=== PATIENT | male | born 1975 | race African-American/Black ===

== ENCOUNTER 2021-03-12 08:50 | Inpatient (IN) | payer SELFPAY ==
[~2021-03-12] VITALS: Ht 193 cm; Wt 157.0 kg
[2021-03-12 09:23] LABS: BASO # 0.1 x10^3/uL (0.0-0.2); BASO % 1 % (0-3); EOS # 0.4 x10^3/uL (0.0-0.7); EOS % 5 % (0-3); HEMATOCRIT 43.2 % (39.0-53.0); HEMOGLOBIN 14.7 g/dL (13.0-17.5); LYMPH # 1.2 x10^3/uL (1.0-4.8); LYMPH % 16 % (24-48); MEAN CORPUSCULAR HEMOGLOBIN 31 pg (25-35); MEAN CORPUSCULAR HGB CONC 34 g/dL (31-37); MEAN CORPUSCULAR VOLUME 91 fL (79-100); MONO # 1.1 x10^3/uL (0.0-1.1); MONO % 15 % (0-9); NEUT # 4.6 x10^3/uL (1.8-7.7); NEUT % 62 % (31-73); PLATELET COUNT 283 x10^3/uL (140-400); RED BLOOD COUNT 4.74 x10^6/uL (4.30-5.70); RED CELL DISTRIBUTION WIDTH 13.9 % (11.5-14.5); WHITE BLOOD COUNT 7.4 x10^3/uL (4.0-11.0)
[2021-03-12] MEDS ORDERED: IV NORMAL SALINE 1000ML BAG 1,000 ML IV ONE (09:30)
[2021-03-12 09:31] LABS: CREATININE 1.1 mg/dL (0.7-1.3); POTASSIUM 4.3 mmol/L (3.5-5.1)
[2021-03-12 09:37] LABS: ALBUMIN 3.8 g/dL (3.4-5.0); ALBUMIN/GLOBULIN RATIO 0.9 (1.0-1.7); TOTAL BILIRUBIN 0.7 mg/dL (0.2-1.0)
[2021-03-12] MEDS ORDERED: IV NORMAL SALINE 500ML BAG 500 ML IV ONE (09:45)
[2021-03-12] MEDS ORDERED: IOHEXOL 350 MG/ML 100 ML VIAL. IV ONE (09:45)
[2021-03-12] MEDS ORDERED: DEXAMETHASONE SOD PHOS 20 MG/5 ML VIAL. IV ONE (09:45)
[2021-03-12] MEDS ORDERED: IPRATRPIUM/ALBUTEROL 0.5/2.5MG 3 ML NEBU. NEB ONE ×3 (09:45→12:00)
--- NOTE | 2021-03-12 09:46 | PHYS DOC ---
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 Is taking norvasc, atorvastatin and albuterol-no relief with a breathing treatment prior to arrival. States his lower extremity swelling has worsened with Norvasc. Also reports he takes Lasix but is uncertain the dosage. Review of Systems: Review of Systems: Constitutional: Denies fever or chills. [] Eyes: Denies change in visual acuity. [] HENT: Denies nasal congestion or sore throat. [] Respiratory: Denies cough or hemoptysis Cardiovascular: Denies syncope or edema. [] GI: Denies abdominal pain, nausea, vomiting, bloody stools or diarrhea. [] : Denies dysuria or hematuria Musculoskeletal: Denies back pain or joint pain. [] Integument: Denies rash or diaphoresis Neurologic: Denies focal weakness or sensory changes. [] Endocrine: Denies polyuria or polydipsia. [] Lymphatic: Denies swollen glands. [] Psychiatric: Denies depression or anxiety. [] Heart Score: C/O Chest Pain: Yes HEART Score for Chest Pain: HEART Score for Chest Pain Response (Comments) Value History Slighlty/Non-Suspicious 0 ECG Normal 0 Age < 45 0 Risk Factors >3 Risk Factors or Hx CAD 2 Troponin < Normal Limit 0 Total 2 Risk Factors: Risk Factors: DM, Current or recent (<one month) smoker, HTN, HLP, family history of CAD, obesity. Risk Scores: Score 0 - 3: 2.5% MACE over next 6 weeks - Discharge Home Score 4 - 6: 20.3% MACE over next 6 weeks - Admit for Clinical Observation Score 7 - 10: 72.7% MACE over next 6 weeks - Early Invasive Strategies Current Medications: Current Medications Medications (Trade) Dose Ordered Sig/Airam Start Time Stop Time Status Last Admin Dose Admin Albuterol/ Ipratropium (Duoneb) 3 ml 1X ONCE 03/12/21 09:45 03/12/21 09:46 UNV Dexamethasone Sodium Phosphate (Decadron) 10 mg 1X ONCE 03/12/21 09:45 03/12/21 09:46 UNV Sodium Chloride 500 ml @ 500 mls/hr 1X ONCE 03/12/21 09:45 03/12/21 10:44 UNV 03/12/21 09:42 500 MLS/HR Allergies: Allergies: Allergies Coded Allergies Type Severity Reaction Last Updated Verified No Known Drug Allergies 03/12/21 No Physical Exam: PE: Constitutional: Well developed, well nourished, no acute distress, non-toxic appearance very large, physically active 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 Neck: Normal range of motion, supple, no JVD Cardiovascular: S1/2 present, regular rhythm Lungs & Thorax: Speaking in full sentences, bilateral equal chest rise, no tachypnea or increased work of breathing, audible wheezing, maintains saturation above 90% Abdomen: soft, no tenderness, Skin: Warm, dry, no erythema, no rash. [] Back: No tenderness, no CVA tenderness. [] Extremities: No tenderness, no cyanosis, bilateral lower extremity edema-right leg appears slightly worse than left Neurologic: Alert and oriented X 3, normal motor function, normal sensory function, no focal deficits noted. [] Psychologic: Affect normal, judgement normal, mood normal. [] Current Patient Data: Labs: Laboratory Tests Test 03/12/21 09:05 White Blood Count 7.4 x10^3/uL (4.0-11.0) Red Blood Count 4.74 x10^6/uL (4.30-5.70) Hemoglobin 14.7 g/dL (13.0-17.5) Hematocrit 43.2 % (39.0-53.0) Mean Corpuscular Volume 91 fL (79-100) Mean Corpuscular Hemoglobin 31 pg (25-35) Mean Corpuscular Hemoglobin Concent 34 g/dL (31-37) Red Cell Distribution Width 13.9 % (11.5-14.5) Platelet Count 283 x10^3/uL (140-400) Neutrophils (%) (Auto) 62 % (31-73) Lymphocytes (%) (Auto) 16 % (24-48) L Monocytes (%) (Auto) 15 % (0-9) H Eosinophils (%) (Auto) 5 % (0-3) H Basophils (%) (Auto) 1 % (0-3) Neutrophils # (Auto) 4.6 x10^3/uL (1.8-7.7) Lymphocytes # (Auto) 1.2 x10^3/uL (1.0-4.8) Monocytes # (Auto) 1.1 x10^3/uL (0.0-1.1) Eosinophils # (Auto) 0.4 x10^3/uL (0.0-0.7) Basophils # (Auto) 0.1 x10^3/uL (0.0-0.2) Sodium Level 138 mmol/L (136-145) Potassium Level 4.3 mmol/L (3.5-5.1) Chloride Level 104 mmol/L (98-107) Carbon Dioxide Level 27 mmol/L (21-32) Anion Gap 7 (6-14) Blood Urea Nitrogen 23 mg/dL (8-26) Creatinine 1.1 mg/dL (0.7-1.3) Estimated GFR (Cockcroft-Gault) 88.0 BUN/Creatinine Ratio 21 (6-20) H Glucose Level 113 mg/dL (70-99) H Calcium Level 9.0 mg/dL (8.5-10.1) Total Bilirubin 0.7 mg/dL (0.2-1.0) Aspartate Amino Transferase (AST) 48 U/L (15-37) H Alanine Aminotransferase (ALT) 51 U/L (16-63) Alkaline Phosphatase 87 U/L (46-116) Troponin I Quantitative < 0.017 ng/mL (0.000-0.055) AY-Gjr-D-Type Natriuretic Peptide 123 pg/mL (0-124) Total Protein 8.0 g/dL (6.4-8.2) Albumin 3.8 g/dL (3.4-5.0) Albumin/Globulin Ratio 0.9 (1.0-1.7) L Laboratory Tests 03/12/21 09:05 Laboratory Tests 03/12/21 09:05 Vital Signs: Vital Signs Date Time Temp Pulse Resp B/P (MAP) Pulse Ox O2 Delivery O2 Flow Rate FiO2 03/12/21 09:03 97.8 100 26 159/96 (117) 94 Room Air 97.8 EKG: EKG: Sinus tachycardia 100 bpm, no axis deviation, QTC 476, no T wave inversion, no ST elevation or ST depression Radiology/Procedures: Radiology/Procedures: IMAGING REPORT Signed PATIENT: DANN CHRIS ACCOUNT: [id number] : 1975 LOCATION: ER AGE: 45 SEX: M EXAM STATUS: REG ER ORD. PHYSICIAN: WALESKA CARRASCO DO REASON: soa PROCEDURE: PORTABLE CHEST 1V Exam Date: 03/12/2021 9:12 AM XR CHEST 1V Indication: Reason: soa / Spl. Instructions: / History: . FINDINGS/ IMPRESSION: The cardiac silhouette and pulmonary vasculature are within normal limits. There is no focal consolidation, pleural effusion or pneumothorax. The visualized osseous structures are intact. Electronically signed by: Gentry Rangel MD (03/12/2021 9:42 AM) [facility] DICTATED and SIGNED BY: GENTRY ARNGEL MD DATE: 03/12/21 [id number] IMAGING REPORT Signed PATIENT: DANN CHRIS ACCOUNT: [id number] : 1975 LOCATION: ER AGE: 45 SEX: M EXAM STATUS: REG ER ORD. PHYSICIAN: WALESKA CARRACSO DO REASON: soa PROCEDURE: CT ANGIOGRAPHY CHEST CTA CHEST INDICATION: soa Comparison: Chest radiograph 03/12/2021. CTA 11/02/2020 TECHNIQUE: Following the uneventful administration of intravenous contrast, 100 cc Omnipaque 350, axial CT sections were obtained through the lungs and upper abdomen. Multiplanar reconstructions and MIP images were obtained. PQRS compliance statement: One or more of the following individualized dose reduction techniques were utilized for this examination: 1. Automated exposure control 2. Adjustment of the mA and/or kV according to patient size 3. Use of iterative reconstruction technique FINDINGS: Pulmonary arteries: No evidence of pulmonary thromboembolic disease. Lungs and Airways: No pulmonary mass or consolidation. Calcified pulmonary granulomas. No abnormality of the central airways. Pleura: The pleural spaces are normal. Heart and Mediastinum: The visualized thyroid is normal in size and attenuation. No axillary or supraclavicular lymphadenopathy. No mediastinal, hilar or retrocrural lymphadenopathy. Calcified left hilar lymph nodes consistent with remote granulomatous disease. The heart and pericardium are within normal limits. The great vessels of the thorax are normal. Residual thymic tissue. Abdomen: Limited images through the upper abdomen show no abnormality of the visualized organs. Bones and Soft Tissues: The visualized bones and chest wall soft tissues are within normal limits. IMPRESSION: 1. No evidence of pulmonary thromboembolic disease. 2. No pulmonary mass or consolidation. Electronically signed by: Sumeet Conway MD (03/12/2021 10:15 AM) [id number] DICTATED and SIGNED BY: SUMEET CONWAY MD DATE: 03/12/21 [id number] 0 Course & Med Decision Making: Course & Med Decision Making Pertinent Labs and Imaging studies reviewed. (See chart for details) Concern for Covid long-haul low versus asthma exacerbation, CT of the chest negative for PE or consolidation. Troponin negative with unremarkable EKG. Will admit for steroids and breathing treatments and further medical management. Patient stable time of admission agrees with this plan. I have spoken with the patient and/or caregivers. I have explained the patient's condition, diagnosis and treatment plan based on the information available to me at this time. I have answered the patient's and/or caregivers questions and answered any concerns. The patient and/or caregivers have as good an understanding of the patient's diagnosis, condition and treatment plan as can be expected at this point. The patient has been stabilized within the capability of the emergency department. The patient will be transported for further care and management or will be moved to an observation or inpatient service. I have communicated with the staff or medical practitioner taking over this patient's care. Robbie Disclaimer: Robbie Disclaimer: This electronic medical record was generated, in whole or in part, using a voice recognition dictation system. Departure Departure Impression: Primary Impression: Asthma exacerbation Disposition: ADMITTED INPATIENT Admitting Physician: MARY (Dr. Hardin) Condition: STABLE Referrals: UNKNOWN PCP NAME (PCP) WALESKA CARRASCO DO Mar 12, 2021 09:45
[2021-03-12] MEDS ORDERED: CONTRAST GIVEN. MC PRN (10:00)
--- NOTE | 2021-03-12 10:17 | RAD ---
CTA CHEST INDICATION: soa Comparison: Chest radiograph 03/12/2021. CTA 11/02/2020 TECHNIQUE: Following the uneventful administration of intravenous contrast, 100 cc Omnipaque 350, axi al CT sections were obtained through the lungs and upper abdomen. Multiplanar reconstructions and MIP images were obtained. PQRS compliance statement: One or more of the following individualized dose reduction techniques were utilized for this examinat ion: 1. Automated exposure control 2. Adjustment of the mA and/or kV according to patient size 3. Use of iterative reconstruction technique FINDINGS: Pulmonary arteries: No evidence of pulmonary thromboembolic disease. Lungs and Airways: No pulmonary mass or consolidation. Calcified pulmonary granulomas. No abnormality of the central airways. Pleura: The pleural spaces are normal. Heart and Mediastinum: The visualized thyroid is normal in size and attenuation. No axillary or supra clavicular lymphadenopathy. No mediastinal, hilar or retrocrural lymphadenopathy. Calcified left latha r lymph nodes consistent with remote granulomatous disease. The heart and pericardium are within norm al limits. The great vessels of the thorax are normal. Residual thymic tissue. Abdomen: Limited images through the upper abdomen show no abnormality of the visualized organs. Bones and Soft Tissues: The visualized bones and chest wall soft tissues are within normal limits. IMPRESSION: 1. No evidence of pulmonary thromboembolic disease. 2. No pulmonary mass or consolidation. Electronically signed by: Alex Conway MD (03/12/2021 10:15 AM) [id number]
--- NOTE | 2021-03-12 11:37 | RAD ---
Site ID: [id number] EXAMINATION: Bilateral lower extremity duplex venous ultrasound. TECHNIQUE: DVT protocol. Multiple sonographic images with color Doppler and waveform interrogation we re performed of the lower extremity veins, bilaterally, with compression and augmentation maneuvers. INDICATION: 45 years Male Bilateral leg swelling. . . FINDINGS: The lower extremity veins from the common femoral veins to below the knee veins were examin ed with normal color-flow, compressibility and normal waveform demonstrated. The great saphenous vein s visualized portion proximally are patent. IMPRESSION: No evidence of DVT in either lower extremity. Electronically signed by: Andrew Hogue MD (03/12/2021 11:35 AM) [id number]
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
[2021-03-12] MEDS ORDERED: ALBUTEROL SULFATE 2.5 MG/3 ML NEBU. NEB PRN (13:00)
[2021-03-12] MEDS ORDERED: KETOROLAC 15 MG/ML VIAL. IVP ONE (13:00)
[2021-03-12] MEDS: BUDESONIDE 0.5 MG/2 ML NEBU. NEB SCH (13:00)
[2021-03-12] MEDS: IPRATRPIUM/ALBUTEROL 0.5/2.5MG 3 ML NEBU. NEB SCH ×2 (13:20→16:00)
[2021-03-12] MEDS ORDERED: DOXYCYCLINE HYCLATE 100 MG in IV DEXTROSE 5% 100ML 100 ML IV ONE (15:00)
[2021-03-12] MEDS: CETIRIZINE HCL 10 MG TABLET. PO SCH (15:58)
[2021-03-12] MEDS: MONTELUKAST SODIUM 10 MG TABLET. PO SCH ×2 (15:58→21:21)
[2021-03-12] MEDS ORDERED: CETI10TA74 PO (16:31)
[2021-03-12] MEDS ORDERED: ASPI-886 PO (16:31)
[2021-03-12] MEDS ORDERED: MONT10TA49 PO (16:31)
[2021-03-12] MEDS ORDERED: FURO-68 PO (16:31)
[2021-03-12] MEDS ORDERED: PROP10TA PO (16:31)
[2021-03-12 16:57] VITALS: BP 164/98
[2021-03-12] MEDS ORDERED: FLU VACC QUAD 21-22 (6MOS+) PF 0.5 ML SYRINGE. VAX IM ONE (17:00)
[2021-03-12] MEDS: fentaNYL PF VIAL 100 MCG/2 ML VIAL IVP PRN ×2 (17:15→21:22)
[2021-03-12] MEDS: guaiFENesin DM 200MG/20MG 10 ML SYRUP PO PRN ×2 (17:15→21:21)
[2021-03-12 19:00] VITALS: BP 123/58
[2021-03-12] MEDS: ASPIRIN ENTERIC COATED 81 MG TABLET.DR. PO SCH (21:21)
[2021-03-12] MEDS: BENZONATATE 100 MG CAPSULE. PO SCH (21:21)
[2021-03-12 22:54] VITALS: BP 133/62
[2021-03-13 03:01] VITALS: BP 148/69
[2021-03-13] MEDS: BUDESONIDE 0.5 MG/2 ML NEBU. NEB SCH ×2 (06:15→20:35)
[2021-03-13] MEDS: IPRATRPIUM/ALBUTEROL 0.5/2.5MG 3 ML NEBU. NEB SCH ×4 (06:15→20:35)
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
[2021-03-13 07:00] VITALS: BP 169/95
[2021-03-13 09:02] LABS: ALBUMIN 3.7 g/dL (3.4-5.0); ALBUMIN/GLOBULIN RATIO 0.8 (1.0-1.7); CREATININE 0.8 mg/dL (0.7-1.3); GFR 127.1; POTASSIUM 4.1 mmol/L (3.5-5.1); TOTAL BILIRUBIN 0.7 mg/dL (0.2-1.0); TOTAL PROTEIN 8.1 g/dL (6.4-8.2)
[2021-03-13] MEDS: DOXYCYCLINE HYCLATE 100 MG TABLET PO SCH ×2 (10:15→23:00)
[2021-03-13] MEDS: CETIRIZINE HCL 10 MG TABLET. PO SCH (10:16)
[2021-03-13] MEDS: predniSONE 20 MG TABLET PO SCH (10:16)
[2021-03-13] MEDS: ASPIRIN ENTERIC COATED 81 MG TABLET.DR. PO SCH (10:16)
[2021-03-13] MEDS: METOPROLOL SUCC 24HR ER 25 MG TAB.ER.24H. PO SCH (10:16)
[2021-03-13] MEDS: BENZONATATE 100 MG CAPSULE. PO SCH ×3 (10:16→23:00)
[2021-03-13 11:00] VITALS: BP 162/91
--- NOTE | 2021-03-13 11:12 | NUR ---
SW following. Discussed with RN, pt from home, room air, regular diet, ad kieran, COVID-19 negative. Pt had COVID about 2 months ago. Med Assist following for self pay status. SW will continue to follow.
[2021-03-13] MEDS: FUROSEMIDE 40 MG TABLET. PO SCH (11:30)
[2021-03-13] MEDS: FLUTICASONE 50MCG/NASAL SPRAY 16GM BOTTLE. NS SCH (11:31)
[2021-03-13] MEDS: LOSARTAN POTASSIUM 50 MG TABLET. PO SCH (11:31)
[2021-03-13] MEDS: ACETAMINOPHEN 325 MG TABLET. PO PRN ×2 (12:29→23:02)
[2021-03-13 15:00] VITALS: BP 154/91
[2021-03-13 19:00] VITALS: BP 162/78
[2021-03-13] MEDS ORDERED: guaiFENesin DM 600/30MG 1 TAB TAB.ER.12H PO SCH (21:00)
[2021-03-13 23:00] VITALS: BP 146/82
[2021-03-13] MEDS: LACTOBACILLUS RHAMNOSUS GG 1 CAPSULE. PO SCH (23:00)
[2021-03-13] MEDS: MONTELUKAST SODIUM 10 MG TABLET. PO SCH (23:00)
[2021-03-14] MEDS ORDERED: HYDROcodone/APAP 5/325MG 1 TAB TABLET PO PRN (02:15)
[2021-03-14 03:00] VITALS: BP 178/96
[2021-03-14 07:00] VITALS: BP 135/78
[2021-03-14] MEDS: IPRATRPIUM/ALBUTEROL 0.5/2.5MG 3 ML NEBU. NEB SCH ×2 (07:15→11:12)
[2021-03-14] MEDS: BUDESONIDE 0.5 MG/2 ML NEBU. NEB SCH (07:16)
[2021-03-14] MEDS ORDERED: guaiFENesin DM 200MG/20MG 10 ML SYRUP PO PRN (07:30)
[2021-03-14] MEDS ORDERED: tiZANidine 4 MG TABLET. PO PRN (07:30)
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
[2021-03-14] MEDS ORDERED: PRED20TA PO (10:13)
[2021-03-14] MEDS ORDERED: LOSA-73 PO (10:13)
[2021-03-14] MEDS ORDERED: METO-239 PO (10:13)
[2021-03-14] MEDS ORDERED: AZIT500T4 PO (10:13)
[2021-03-14] MEDS ORDERED: ALBU2.5V8 NEB (10:13)
[2021-03-14] MEDS ORDERED: FLUT16SP NS (10:13)
[2021-03-14] MEDS: FLUTICASONE 50MCG/NASAL SPRAY 16GM BOTTLE. NS SCH (10:22)
[2021-03-14] MEDS: BENZONATATE 100 MG CAPSULE. PO SCH (10:22)
[2021-03-14] MEDS: CETIRIZINE HCL 10 MG TABLET. PO SCH (10:23)
[2021-03-14] MEDS: FUROSEMIDE 40 MG TABLET. PO SCH (10:23)
[2021-03-14] MEDS: LACTOBACILLUS RHAMNOSUS GG 1 CAPSULE. PO SCH (10:23)
[2021-03-14] MEDS: DOXYCYCLINE HYCLATE 100 MG TABLET PO SCH (10:23)
[2021-03-14] MEDS: METOPROLOL SUCC 24HR ER 25 MG TAB.ER.24H. PO SCH (10:23)
[2021-03-14] MEDS: predniSONE 20 MG TABLET PO SCH (10:23)
[2021-03-14] MEDS: ASPIRIN ENTERIC COATED 81 MG TABLET.DR. PO SCH (10:23)
[2021-03-14] MEDS: LOSARTAN POTASSIUM 50 MG TABLET. PO SCH (10:24)
[2021-03-14 11:00] VITALS: BP 143/83
--- NOTE | 2021-03-14 12:35 | NUR ---
SW following. Discussed with RN, pt from home, room air, regular diet, COVID-19 negative. Discharge order for home with self care. Med Assist following for self pay status.
--- NOTE | 2021-03-14 14:11 | NUR ---
Pt left unit at 1345 by ambulation via private vehicle. Pt's IV removed without complication, VSS. Discharge paperwork discussed and sent with pt at time of discharge.
== END 2021-03-14 13:45 | disposition home or self-care (01) | DRG 202 ==
LOC: ER 08:50 → ED HOLD 12:26 → 5 NORTH 15:50
PROVIDERS: ADMIT Internal Medicine; ATTEND Internal Medicine
DX: J45.901 Unspecified asthma with (acute) exacerbation (principal); I50.32 Chronic diastolic (congestive) heart failure; L02.31 Cutaneous abscess of buttock; E78.5 Hyperlipidemia, unspecified; I11.0 Hypertensive heart disease with heart failure; I69.334 Monoplegia of upper limb following cerebral infarction affecting left non-dominant side; J44.9 Chronic obstructive pulmonary disease, unspecified; Z20.822 Contact with and (suspected) exposure to COVID-19; Z79.899 Other long term (current) drug therapy; Z82.49 Family history of ischemic heart disease and other diseases of the circulatory system; Z86.16 Personal history of COVID-19
CPT/HCPCS: 36415; 71045; 71275; 80053; 83880; 84484; 85025; 87426; 90471; 90686; 93970; 94640; 94760; J1100; J1885; J3010; J3490; J7030; J7040; J7060; J7512; Q9967; U0003; U0005; 99285-25; G0378; J7626

== ENCOUNTER 2021-04-07 11:05 | Emergency (ER) | payer SELFPAY ==
[~2021-04-07] VITALS: Ht 188 cm; Wt 125.0 kg
[~2021-04-07 11:05] MED LIST: ALBU2.5V8 NEB; ASPI-886 PO; AZIT500T4 PO; CETI10TA74 PO; FLUT16SP NS; FURO-68 PO; LOSA-73 PO; METO-239 PO; MONT10TA49 PO; PRED20TA PO; PROP10TA PO
--- NOTE | 2021-04-07 15:59 | PHYS DOC ---
Past Medical History Past Surgical History: Other Smoking Status: Former Smoker Alcohol Use: None General Adult EDM: Chief Complaint: FOOT INJURY PAIN HPI: HPI: Patient is a 45-year-old male who presents to the emergency department chief complaint of bilateral foot pain for the past 4 weeks. Patient denies injury to his feet, reports he may have gout although denies history of gout problems. Patient also reports being in close contact with someone who was COVID-19 +, 2 weeks ago and has been experiencing generalized body aches for the past 2 weeks. Patient denies chest pain or shortness of breath, denies cough, chest congestion or nasal congestion. Patient denies nausea, vomiting, or diarrhea. Patient denies abdominal pains. Patient denies increased thirst or increased urination. Patient is asking for a work excuse. Patient is requesting a cab pa ss to [facility]. Patient denies other physical complaints or physical concerns. Review of Systems: Review of Systems: 14 body systems of review of systems have been reviewed. See HPI for pertinent positives and negative responses, otherwise all other systems are negative, nonpertinent or noncontributory. Constitutional: Negative except as outlined in HPI above. Skin: Negative except as outlined in HPI above. Eyes: Negative except as outlined in HPI above. HENT: Negative except as outlined in HPI above. Respiratory: Negative except as outlined in HPI above. Cardiovascular: Negative except as outlined in HPI above. GI: Negative except as outlined in HPI above. : Negative except as outlined in HPI above. Musculoskeletal: Negative except as outlined in HPI above. Integument: Negative except as outlined in HPI above. Neurologic: Negative except as outlined in HPI above. Endocrine: Negative except as outlined in HPI above. Lymphatic: Negative except as outlined in HPI above. Psychiatric: Negative except as outlined in HPI above. Heart Score: C/O Chest Pain: No Risk Factors: Risk Factors: DM, Current or recent (<one month) smoker, HTN, HLP, family history of CAD, obesity. Risk Scores: Score 0 - 3: 2.5% MACE over next 6 weeks - Discharge Home Score 4 - 6: 20.3% MACE over next 6 weeks - Admit for Clinical Observation Score 7 - 10: 72.7% MACE over next 6 weeks - Early Invasive Strategies Allergies: Allergies: Allergies Coded Allergies Type Severity Reaction Last Updated Verified No Known Drug Allergies 04/07/21 No Physical Exam: PE: Constitutional: Well developed, well nourished, no acute distress, non-toxic appearance. 45-year-old male in no apparent distress. HENT: Normocephalic, atraumatic. No deep tissue infectious of the oropharynx process appreciated, no lymphadenopathy of the head or neck appreciated. Patient speaking in normal voice tones, no drooling, no trismus. Bilateral TMs intact within normal limits. Eyes: Conjunctiva normal, no discharge. Neck: Normal range of motion, no stridor. Cardiovascular: No cyanosis appreciated, distal cap refill less than 2 seconds. Heart sounds S1-S2. Lungs & Thorax: Patient is in no respiratory distress, no audible adventitious lung sounds appreciated. No adventitious lung sounds appreciated per auscultation, clear lung sounds all lung johnson. Abdomen: Nontender, no abnormalities noted. Skin: Warm, dry, no erythema, no rash. Back: No tenderness, no deformities. Extremities: No tenderness, no cyanosis, no clubbing, ROM intact, no edema. 2+ dorsalis pedis/posterior tibial pulses, pain to palpation along dorsal aspect of bilateral feet. Distal cap refill is less than 2 seconds, no abnormalities appreciated of bilateral feet. Patient's complaints of pain of his feet exceeds patient's physical presentation and examination. Neurologic: Alert and oriented X 3, normal motor function, normal sensory function, no focal deficits noted. Psychologic: Affect normal, judgement normal, mood normal. Current Patient Data: Labs: Laboratory Tests Test 04/07/21 16:36 04/07/21 16:38 White Blood Count 6.7 x10^3/uL Red Blood Count 4.78 x10^6/uL Hemoglobin 14.8 g/dL Hematocrit 43.9 % Mean Corpuscular Volume 92 fL Mean Corpuscular Hemoglobin 31 pg Mean Corpuscular Hemoglobin Concent 34 g/dL Red Cell Distribution Width 14.0 % Platelet Count 232 x10^3/uL Neutrophils (%) (Auto) 58 % Lymphocytes (%) (Auto) 21 % Monocytes (%) (Auto) 13 % Eosinophils (%) (Auto) 8 % Basophils (%) (Auto) 1 % Neutrophils # (Auto) 3.9 x10^3/uL Lymphocytes # (Auto) 1.4 x10^3/uL Monocytes # (Auto) 0.9 x10^3/uL Eosinophils # (Auto) 0.5 x10^3/uL Basophils # (Auto) 0.1 x10^3/uL Sodium Level 139 mmol/L Potassium Level 3.9 mmol/L Chloride Level 103 mmol/L Carbon Dioxide Level 29 mmol/L Anion Gap 7 Blood Urea Nitrogen 24 mg/dL Creatinine 1.1 mg/dL Estimated GFR (Cockcroft-Gault) 88.0 Glucose Level 105 mg/dL Uric Acid 6.1 mg/dL Calcium Level 8.3 mg/dL SARS-CoV-2 Antigen (Rapid) Negative Current Medications Medications (Trade) Dose Ordered Sig/Airam Route PRN Reason Start Time Stop Time Status Last Admin Dose Admin Ketorolac Tromethamine (Toradol Im) 60 mg 1X ONCE IM 04/07/21 16:00 04/07/21 16:06 DC 04/07/21 16:00 Vital Signs: Vital Signs Date Time Temp Pulse Resp B/P (MAP) Pulse Ox O2 Delivery O2 Flow Rate FiO2 04/07/21 13:22 98.4 95 15 166/106 (126) 98 Room Air 98.4 EKG: EKG: [] Radiology/Procedures: Radiology/Procedures: PATIENT: DANN VALENTIN ACCOUNT: [id number] : 1975 LOCATION: ER AGE: 45 SEX: M EXAM STATUS: REG ER ORD. PHYSICIAN: ALEXIS PEDRAZA APRN REASON: Acute pain PROCEDURE: FOOT BILAT 3V EXAM: Bilateral feet, 3 views. HISTORY: Acute pain. COMPARISON: None. FINDINGS: 3 views of both feet are obtained. There is no acute fracture, dislocation or subluxation. There is minimal enthesopathy at the Achilles tendon insertions. There is a small corticated ossicle along the anterior right talus, possibly due to a chronic nonunited avulsion fracture fragment. IMPRESSION: No acute osseous finding. Electronically signed by: Orquidea Avery MD (04/07/2021 4:17 PM) [id number] Course & Med Decision Making: Course & Med Decision Making Pertinent Labs and Imaging studies reviewed. (See chart for details) 45-year-old male, vital signs reviewed, presents emergency department concerning bilateral foot pain for 4 weeks, generalized body aches for the past 2 weeks. Physical examination is unremarkable, with patient's reported exposure to COVID- 19 virus patient will order COVID-19 testing, CBC, BMP, will order uric acid level with patient's concerns of gout flareup of bilateral feet. Patient's labs unremarkable, patient is rapid Covid test is negative, uric acid level within normal limits, x-ray of bilateral feet nonconcerning for arthritis, osteoarthritis, or other acute process. Discussed findings with patient, will diagnosed with viral syndrome, bilateral foot pain, patient was given IM Toradol for pain, patient reports mild relief of pain of his feet. Patient is asking for a cab pass to [facility]. Patient is also asking for work excuse, provide work excuse. Patient is nontoxic in appearance, in no respiratory distress, is not hypoxic. Discussed with the patient all findings and diagnostic testing as well as the need to follow-up with their primary care provider for further evaluation and treatment or return to the ED if any new or worsening symptoms. Strict return precautions were also discussed at length, the patient voiced understanding and agreement with the discharge planning. The patient was nontoxic in appearance, in no apparent distress, and hemodynamically stable at the time of disposition. Dragon Disclaimer: [employer] Disclaimer: This electronic medical record was generated, in whole or in part, using a voice recognition dictation system. Departure Departure Impression: Primary Impression: Viral syndrome Additional Impression: Bilateral foot pain Disposition: HOME / SELF CARE / HOMELESS Condition: GOOD Referrals: NO PCP (PCP) Patient Instructions: Viral Syndrome Additional Instructions: You were seen today in the emergency department for body aches and pains with bilateral foot pain. X-rays of your feet did not show any abnormalities, a Covid test was done today in the emergency department, you do not have the Covid virus. You were checked for gout, you do not have any signs for gout. I am writing you a work excuse as you requested for the next 2 days. Please continue to take [id number] ibuprofen and/or Tylenol for aches and pains. Follow- up with your primary care physician this week for ongoing symptoms. Return to the emergency department for worsening symptoms or other concerns. Thank you for visiting our Emergency Department. It was a pleasure taking care of you today in the emergency department and we appreciate you trusting us with your care. If any additional problems come up don't hesitate to return to visit us. Please follow up with your primary care provider so they can plan additional care if needed and know about the problem that you had. If symptoms worsen come back to the Emergency Department. Any concerning symptoms that start such as chest pain, shortness of air, weakness or numbness on one side of the body, running high fevers or any other concerning symptoms return to the ER. EMERGENCY DEPARTMENT GENERAL DISCHARGE INSTRUCTIONS Thank you for coming to [facility] Emergency Department (ED) today and trusting us with you care. We trust that you had a positive experience in our Emergency Department. If you wish to speak to the department management, you may call the Director at [phone]. YOUR FOLLOW UP INSTRUCTIONS ARE FOLLOWS: 1. Do you have a private Doctor? If you do not have a private doctor, please ask for a resource list of physicians or clinics that may be able to assist you with follow up care. 2. The Emergency Physicain has interpreted your x-rays. The X-Ray specialist will also review them. If there is a change in the findings, you will be notified in 48 hours when at all possible. 3. A lab test or culture has been done, your results will be reviewed and you will be notified if you need a change in treatment. ADDITIONAL INSTRUCTIONS AND INFORMATION: 1. Your care today has been supervised by a physician who is specially trained in emergency care. Many problems require more than one evaluation for a complete diagnosis and treatment. We recommend that you schedule your follow up appointment as recommended to ensure complete treatment of you illness or injury. If you are unable to obtain follow up care and continue to have a problem, or if your condition worsens, we recommend that you return to the ED. 2. We are not able to safely determine your condition over the phone nor are we able to give sound medical advice over the phone. For these safety reasons, if you call for medical advice we will ask you to come to the ED for further evaluation. 3. If you have any questions regarding these discharge instructions please call the ED at [phone]. SAFETY INFORMATION: In the interest of safety, wellness, and injury prevention; we encourage you to wear your sealbelt, if you smoke; quite smoking, and we encourage family to use a protective helmet for bicycling and other sporting events that present an increased risk for head injury. IF YOUR SYMPTOMS WORSEN OR NEW SYMPTOMS DEVELOP, OR YOU HAVE CONCERNS ABOUT YOUR CONDITION; OR IF YOUR CONDITION WORSENS WHILE YOU ARE WAITING FOR YOUR FOLLOW UP APPOINTMENT; EITHER CONTACT YOUR PRIMARY CARE DOCTOR, THE PHYSICIAN WHOSE NAME AND NUMBER YOU WERE GIVEN, OR RETURN TO THE ED IMMEDIATELY. ALEXIS PEDRAZA APRN Apr 07, 2021 15:59
[2021-04-07] MEDS ORDERED: KETOROLAC 60 MG/2 ML VIAL. IM ONE (16:00)
--- NOTE | 2021-04-07 16:19 | RAD ---
EXAM: Bilateral feet, 3 views. HISTORY: Acute pain. COMPARISON: None. FINDINGS: 3 views of both feet are obtained. There is no acute fracture, dislocation or subluxation. There is minimal enthesopathy at the Achilles tendon insertions. There is a small corticated ossicle along the anterior right talus, possibly due to a chronic nonunited avulsion fracture fragment. IMPRESSION: No acute osseous finding. Electronically signed by: Orquidea Avery MD (04/07/2021 4:17 PM) [id number]
[2021-04-07 16:53] LABS: BASO # 0.1 x10^3/uL (0.0-0.2); BASO % 1 % (0-3); CALCIUM 8.3 mg/dL (8.5-10.1); CREATININE 1.1 mg/dL (0.7-1.3); EOS # 0.5 x10^3/uL (0.0-0.7); EOS % 8 % (0-3); HEMATOCRIT 43.9 % (39.0-53.0); HEMOGLOBIN 14.8 g/dL (13.0-17.5); LYMPH # 1.4 x10^3/uL (1.0-4.8); LYMPH % 21 % (24-48); MEAN CORPUSCULAR HEMOGLOBIN 31 pg (25-35); MEAN CORPUSCULAR HGB CONC 34 g/dL (31-37); MEAN CORPUSCULAR VOLUME 92 fL (79-100); MONO # 0.9 x10^3/uL (0.0-1.1); MONO % 13 % (0-9); NEUT # 3.9 x10^3/uL (1.8-7.7); NEUT % 58 % (31-73); PLATELET COUNT 232 x10^3/uL (140-400); POTASSIUM 3.9 mmol/L (3.5-5.1); RED BLOOD COUNT 4.78 x10^6/uL (4.30-5.70); WHITE BLOOD COUNT 6.7 x10^3/uL (4.0-11.0)
[2021-04-07 16:56] LABS: URIC ACID 6.1 mg/dL (3.5-7.2)
[2021-04-07 17:07] VITALS: BP 169/87
== END 2021-04-07 18:43 | disposition home or self-care (01) ==
LOC: ER 11:05
DX: B34.9 Viral infection, unspecified (principal); Z20.822 Contact with and (suspected) exposure to COVID-19; M79.672 Pain in left foot; M79.671 Pain in right foot; Z87.891 Personal history of nicotine dependence
CPT/HCPCS: 36415; 73630; 80048; 84550; 85025; 87426; 96372; 99284; J1885; U0003; U0005

== ENCOUNTER 2021-04-07 19:30 | Emergency (ER) | payer SELFPAY ==
[~2021-04-07] VITALS: Ht 182.9 cm; Wt 150.6 kg
[2021-04-07 20:16] LABS: BASO # 0.1 x10^3/uL (0.0-0.2); BASO % 1 % (0-3); EOS # 0.5 x10^3/uL (0.0-0.7); EOS % 8 % (0-3); HEMATOCRIT 42.1 % (39.0-53.0); HEMOGLOBIN 14.7 g/dL (13.0-17.5); LYMPH # 1.2 x10^3/uL (1.0-4.8); LYMPH % 20 % (24-48); MEAN CORPUSCULAR HEMOGLOBIN 32 pg (25-35); MEAN CORPUSCULAR HGB CONC 35 g/dL (31-37); MEAN CORPUSCULAR VOLUME 92 fL (79-100); MONO # 0.8 x10^3/uL (0.0-1.1); MONO % 14 % (0-9); NEUT # 3.4 x10^3/uL (1.8-7.7); NEUT % 57 % (31-73); PLATELET COUNT 235 x10^3/uL (140-400); RED CELL DISTRIBUTION WIDTH 14.1 % (11.5-14.5); WHITE BLOOD COUNT 5.9 x10^3/uL (4.0-11.0)
--- NOTE | 2021-04-07 20:21 | RAD ---
EXAMINATION: Chest radiograph. VIEWS: Single AP view of the chest COMPARISON: CT chest from 03/12/2021 INDICATION:45 years, Male, chest pain. FINDINGS: Normal cardiomediastinal silhouette. Pulmonary vasculature is within normal limits for technique. No focal consolidation. No pleural effusion or pneumothorax. No acute osseous process. IMPRESSION: No acute cardiopulmonary process. Electronically signed by: Clayton Whitehead DO (04/07/2021 8:18 PM) [facility]
[2021-04-07 20:27] LABS: CALCIUM 8.2 mg/dL (8.5-10.1); CREATININE 1.1 mg/dL (0.7-1.3); POTASSIUM 3.6 mmol/L (3.5-5.1)
[2021-04-07 20:35] LABS: ALBUMIN 3.7 g/dL (3.4-5.0); ALBUMIN/GLOBULIN RATIO 0.9 (1.0-1.7); MAGNESIUM 2.1 mg/dL (1.8-2.4); TOTAL BILIRUBIN 1.7 mg/dL (0.2-1.0); TOTAL PROTEIN 7.6 g/dL (6.4-8.2)
--- NOTE | 2021-04-07 20:53 | PHYS DOC ---
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 Don't you know what those symptoms are. Did not you not read the chart?" Pt reports a history of atrial fibrillation and states he feels shortness of breath and dizzy as if he is going into congestive heart failure. States he does not feel good and feels like he also has heartburn. States he was admitted to the hospital last month for symptoms of shortness of breath was seen by Dr. Felix and states "they did nothing." Patient very defensive on my arrival in his room. Is manipulative d uring conversation which makes history limited. Refuses to inform me where his abdominal pain is at. States everyone who has been in his room has treated him poorly. Calls myself unprofessional and in response to me addressing his prior ed visit/incomplete note I reviewed with him, (for viral syndrome and foot pain), pt stated "you don't know how to read and you won't stop running your mouth." Pt had just been discharged from the emergency department within the past hour and had not left the waiting room per rns' report. Pt told triage he had chest pain for 3 days. Review of Systems: Review of Systems: ROS: limited due to pt cooperation Heart Score: C/O Chest Pain: Yes HEART Score for Chest Pain: HEART Score for Chest Pain Response (Comments) Value History Slighlty/Non-Suspicious 0 ECG Nonspecific Repolarizatio 1 Age < 45 0 Risk Factors >3 Risk Factors or Hx CAD 2 Troponin < Normal Limit 0 Total 3 Risk Factors: Risk Factors: DM, Current or recent (<one month) smoker, HTN, HLP, family history of CAD, obesity. Risk Scores: Score 0 - 3: 2.5% MACE over next 6 weeks - Discharge Home Score 4 - 6: 20.3% MACE over next 6 weeks - Admit for Clinical Observation Score 7 - 10: 72.7% MACE over next 6 weeks - Early Invasive Strategies Allergies: Allergies: Allergies Coded Allergies Type Severity Reaction Last Updated Verified No Known Drug Allergies 04/07/21 No Physical Exam: PE: Constitutional: Well developed, well nourished, no acute distress, non-toxic appearance. HENT: Normocephalic, atraumatic, Eyes: EOMI, conjunctiva normal, no discharge. Neck: Normal range of motion, supple, Cardiovascular: S1/2 present, regular rhythm Lungs & Thorax: Speaking in full sentences, bilateral equal chest rise, no tachypnea or increased work of breathing Extremities: No unilateral leg swelling, no cyanosis, Neurologic: Alert and oriented X 3, normal motor function, normal sensory function, no focal deficits noted. [] Psychologic: Affect normal, judgement normal, mood normal. [] Current Patient Data: Labs: Laboratory Tests Test 04/07/21 16:36 04/07/21 20:07 Troponin I Quantitative 0.031 ng/mL (0.000-0.055) 0.026 ng/mL (0.000-0.055) White Blood Count 5.9 x10^3/uL (4.0-11.0) Red Blood Count 4.60 x10^6/uL (4.30-5.70) Hemoglobin 14.7 g/dL (13.0-17.5) Hematocrit 42.1 % (39.0-53.0) Mean Corpuscular Volume 92 fL (79-100) Mean Corpuscular Hemoglobin 32 pg (25-35) Mean Corpuscular Hemoglobin Concent 35 g/dL (31-37) Red Cell Distribution Width 14.1 % (11.5-14.5) Platelet Count 235 x10^3/uL (140-400) Neutrophils (%) (Auto) 57 % (31-73) Lymphocytes (%) (Auto) 20 % (24-48) L Monocytes (%) (Auto) 14 % (0-9) H Eosinophils (%) (Auto) 8 % (0-3) H Basophils (%) (Auto) 1 % (0-3) Neutrophils # (Auto) 3.4 x10^3/uL (1.8-7.7) Lymphocytes # (Auto) 1.2 x10^3/uL (1.0-4.8) Monocytes # (Auto) 0.8 x10^3/uL (0.0-1.1) Eosinophils # (Auto) 0.5 x10^3/uL (0.0-0.7) Basophils # (Auto) 0.1 x10^3/uL (0.0-0.2) D-Dimer (Yola) < 0.27 ug/mlFEU Sodium Level 139 mmol/L (136-145) Potassium Level 3.6 mmol/L (3.5-5.1) Chloride Level 102 mmol/L (98-107) Carbon Dioxide Level 29 mmol/L (21-32) Anion Gap 8 (6-14) Blood Urea Nitrogen 23 mg/dL (8-26) Creatinine 1.1 mg/dL (0.7-1.3) Estimated GFR (Cockcroft-Gault) 88.0 BUN/Creatinine Ratio 21 (6-20) H Glucose Level 102 mg/dL (70-99) H Calcium Level 8.2 mg/dL (8.5-10.1) L Magnesium Level 2.1 mg/dL (1.8-2.4) Total Bilirubin 1.7 mg/dL (0.2-1.0) H Aspartate Amino Transferase (AST) 74 U/L (15-37) H Alanine Aminotransferase (ALT) 59 U/L (16-63) Alkaline Phosphatase 67 U/L (46-116) DJ-Wjd-Z-Type Natriuretic Peptide 54 pg/mL (0-124) Total Protein 7.6 g/dL (6.4-8.2) Albumin 3.7 g/dL (3.4-5.0) Albumin/Globulin Ratio 0.9 (1.0-1.7) L Lipase 41 U/L (73-393) L Laboratory Tests 04/07/21 20:07 Laboratory Tests 04/07/21 20:07 Vital Signs: Vital Signs Date Time Temp Pulse Resp B/P (MAP) Pulse Ox O2 Delivery O2 Flow Rate FiO2 04/07/21 20:13 74 18 134/78 (96) 100 04/07/21 19:45 98.1 98.1 EKG: EK bpm, no axis deviation, QTC 470, T wave inversion aVL, no ST elevation or ST depression Radiology/Procedures: Radiology/Procedures: IMAGING REPORT Signed PATIENT: DANN VALENTIN Phan ACCOUNT: [id number] : 1975 LOCATION: ER AGE: 45 SEX: M EXAM STATUS: REG ER ORD. PHYSICIAN: WALESKA CARRASCO DO REASON: cp PROCEDURE: PORTABLE CHEST 1V EXAMINATION: Chest radiograph. VIEWS: Single AP view of the chest COMPARISON: CT chest from 03/12/2021 INDICATION:45 years, Male, chest pain. FINDINGS: Normal cardiomediastinal silhouette. Pulmonary vasculature is within normal limits for technique. No focal consolidation. No pleural effusion or pneumothorax. No acute osseous process. IMPRESSION: No acute cardiopulmonary process. Electronically signed by: Italo Whitehead DO (04/07/2021 8:18 PM) [facility] DICTATED and SIGNED BY: ITALO WHITEHEAD DO DATE: 04/07/[id number] 0 Course & Med Decision Making: Course & Med Decision Making Pertinent Labs and Imaging studies reviewed. (See chart for details) Multiple attempts to verbally re-direct pt and obtain accurate history. Pt asked for another provider and for me to leave his ed room. I explained that I am only trying to help him, that I am the only medical provider and would appreciate his cooperation-that I would come back in a few minutes and re-assess . Pt was seen by department staff leaving the ed. Pts' IV was left in his ed room. Pt had medical decision-making capacity and was not medically cleared for ed discharge by myself due to poor history and pt non compliance. I later spoke to my midlevel regarding this encounter. He informed me that patient was upset after receiving a cab voucher because it would not take him where he wanted to go and when finding this out he rechecked in the emergency department after his initial visit. Robbie Disclaimer: Robbie Disclaimer: This electronic medical record was generated, in whole or in part, using a voice recognition dictation system. Departure Departure Impression: Primary Impression: Chest pain at rest Additional Impression: Eloped from emergency department Disposition: 07 LEFT AWOL/ELOPED Condition: STABLE Referrals: NO PCP (PCP) Follow-up with your primary care physician in 24 to 48 hours OR FOLLOW UP WITH FAMILY MEDICINE: [address] [facility] [address] [place] [address] Patient Instructions: Chest Pain (Nonspecific), Heart Failure Additional Instructions: FOLLOW UP WITH CARDIOLOGY: FOR DEFINITIVE MANAGEMENT [facility] [address] [place] [address] EMERGENCY DEPARTMENT GENERAL DISCHARGE INSTRUCTIONS Thank you for coming to [facility] Emergency Department (ED) today and trusting us with you care. We trust that you had a positive experience in our Emergency Department. If you wish to speak to the department management, you may call the Director at [phone]. YOUR FOLLOW UP INSTRUCTIONS ARE FOLLOWS: 1. Do you have a private Doctor? If you do not have a private doctor, please ask for a resource list of physicians or clinics that may be able to assist you with follow up care. 2. The Emergency Physicain has interpreted your x-rays. The X-Ray specialist will also review them. If there is a change in the findings, you will be notified in 48 hours when at all possible. 3. A lab test or culture has been done, your results will be reviewed and you will be notified if you need a change in treatment. ADDITIONAL INSTRUCTIONS AND INFORMATION: 1. Your care today has been supervised by a physician who is specially trained in emergency care. Many problems require more than one evaluation for a complete diagnosis and treatment. We recommend that you schedule your follow up appointment as recommended to ensure complete treatment of you illness or injury. If you are unable to obtain follow up care and continue to have a problem, or if your condition worsens, we recommend that you return to the ED. 2. We are not able to safely determine your condition over the phone nor are we able to give sound medical advice over the phone. For these safety reasons, if you call for medical advice we will ask you to come to the ED for further evaluation. 3. If you have any questions regarding these discharge instructions please call the ED at [phone]. SAFETY INFORMATION: In the interest of safety, wellness, and injury prevention; we encourage you to wear your sealbelt, if you smoke; quite smoking, and we encourage family to use a protective helmet for bicycling and other sporting events that present an increased risk for head injury. IF YOUR SYMPTOMS WORSEN OR NEW SYMPTOMS DEVELOP, OR YOU HAVE CONCERNS ABOUT YOUR CONDITION; OR IF YOUR CONDITION WORSENS WHILE YOU ARE WAITING FOR YOUR FOLLOW UP APPOINTMENT; EITHER CONTACT YOUR PRIMARY CARE DOCTOR, THE PHYSICIAN WHOSE NAME AND NUMBER YOU WERE GIVEN, OR RETURN TO THE ED IMMEDIATELY. WALESKA CARRASCO DO Apr 07, 2021 20:53
[2021-04-07 21:00] VITALS: BP 130/73
[2021-04-07] MEDS ORDERED: MIDAZOLAM HCL/PF 5 MG/5 ML VIAL. NS ONE (22:00)
--- NOTE | 2021-04-08 04:30 | EKG ---
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
--- NOTE | 2021-04-08 16:17 | NUR ---
IP: Attempted x 3 to contact pt concerning covid test. Phone will not connect and says to call back later.
--- NOTE | 2021-04-09 17:05 | NUR ---
IP: Attempted x 2 to contact pt concerning covid results. Phone line provided still will not connect.
== END 2021-04-07 21:35 | disposition left against medical advice (07) ==
LOC: ER 19:30
DX: R07.89 Other chest pain (principal); R42 Dizziness and giddiness; R06.02 Shortness of breath; Z87.891 Personal history of nicotine dependence; I11.0 Hypertensive heart disease with heart failure; I50.30 Unspecified diastolic (congestive) heart failure; E78.5 Hyperlipidemia, unspecified; Z86.73 Personal history of transient ischemic attack (TIA), and cerebral infarction without residual deficits
CPT/HCPCS: 36415; 71045; 80053; 83615; 83690; 83735; 83880; 84484; 85025; 85379; 93005; 99285-25